=== PATIENT | female | born 1960 | race Caucasian/White ===

== ENCOUNTER 2018-10-17 13:13 | Emergency (ER) | payer BC ==
--- NOTE | 2018-10-17 13:52 | EDM.PDOC ---
ED HPI GENERAL MEDICAL PROBLEM - General Chief Complaint: ENT Problem Stated Complaint: sore throat fever Time Seen by Provider: 10/17/18 13:47 Source of Information: Reports: Patient, RN, RN Notes Reviewed History Limitations: Reports: No Limitations - History of Present Illness INITIAL COMMENTS - FREE TEXT/NARRATIVE: Patient presents to ER with complaint of sore throat and fever. States sore throat began on and fever that began Friday. Complaint of swollen, tender lymph nodes and ear pressure bilaterally. She has had fever. No headache , cough, nausea, vomiting or diarrhea. Onset Date: 10/15/18 Duration: Getting Worse Location: Reports: Other (throat) Quality: Reports: Ache Severity: Moderate Improves with: Reports: None Worsens with: Reports: None Associated Symptoms: Reports: No Other Symptoms - Related Data Allergies Allergy/AdvReac Type Severity Reaction Status Date / Time Sulfa (Sulfonamide Allergy Itching Verified 10/17/18 13:21 Antibiotics) Home Meds: Home Meds Rosuvastatin [Crestor] 10 mg PO DAILY 02/24/18 [History] Venlafaxine [Effexor XR] 150 mg PO BEDTIME 02/24/18 [History] Metoprolol Tartrate [Lopressor] 50 mg PO BID #60 tablet 02/25/18 [Rx] amLODIPine Besylate [Amlodipine Besylate] 10 mg PO QAM #30 tablet 02/25/18 [Rx] Past Medical History Cardiovascular History: Reports: High Cholesterol, Hypertension 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 ED EXAM, ENT - Physical Exam Exam: See Below Exam Limited By: No Limitations General Appearance: Alert, WD/WN, No Apparent Distress Eye Exam: Bilateral Eye: EOMI, Normal Inspection, PERRL Ears: Normal External Exam, Normal Canal, Hearing Grossly Normal, Normal TMs Nose: Normal Inspection, Normal Mucousa, No Blood Mouth/Throat: Other (red and erythematous) Head: Atraumatic, Normocephalic Neck: Other (+3 anterior cervical lymph nodes) Respiratory/Chest: No Respiratory Distress, Lungs Clear, Normal Breath Sounds, No Accessory Muscle Use, Chest Non-Tender Cardiovascular: Normal Peripheral Pulses, Regular Rate, Rhythm, No Edema, No Gallop, No JVD, No Murmur, No Rub GI/Abdominal: Normal Bowel Sounds, Soft, Non-Tender, No Organomegaly, No Distention, No Abnormal Bruit, No Mass (Female) Exam: Deferred Rectal (Female) Exam: Deferred Back: Normal Inspection, Full Range of Motion Extremities: Normal Inspection, Normal Range of Motion, Non-Tender, No Pedal Edema, Normal Capillary Refill Neurological: Alert, Oriented, CN II-XII Intact, Normal Cognition, Normal Gait, Normal Reflexes, No Motor/Sensory Deficits Psychiatric: Normal Affect, Normal Mood Skin: Warm, Dry, Intact, Normal Color, No Rash Lymphatic: No Adenopathy Course - Vital Signs Last Recorded V/S: Last Vital Signs Temp 100.1 F 10/17/18 13:18 Pulse 111 H 10/17/18 13:18 Resp 16 10/17/18 13:18 BP 148/68 H 10/17/18 13:18 Pulse Ox 98 10/17/18 13:18 - Orders/Labs/Meds Labs: Rapid Strep: Positive Departure - Departure Time of Disposition: 13:51 Disposition: Home, Self-Care 01 Condition: Fair Clinical Impression: Strep throat - Discharge Information *PRESCRIPTION DRUG MONITORING PROGRAM REVIEWED*: No *COPY OF PRESCRIPTION DRUG MONITORING REPORT IN PATIENT KYLIE: No Instructions: Strep Throat, [id number], Sore Throat, [id number], You've Been Prescribed an Antibiotic in the Hospital for an Infection - [facility] (07/2017) Referrals: Rose Mary Arryoo MD [Primary Care Provider] - Forms: ED Department Discharge Additional Instructions: Drink plenty of water May use Tylenol and/or Ibuprofen as directed for pain RX: Amoxicillin Follow up with your primary care facility if no improvement
== END 2018-10-17 13:56 | disposition home or self-care (01) ==
LOC: DL.ED 13:13
DX: J02.0 Streptococcal pharyngitis (principal); I10 Essential (primary) hypertension; F41.9 Anxiety disorder, unspecified; F32.9 Major depressive disorder, single episode, unspecified; Z79.899 Other long term (current) drug therapy; Z88.2 Allergy status to sulfonamides
CPT/HCPCS: 87430; 99283